=== PATIENT | female | born 1950 | race Caucasian/White ===

== ENCOUNTER 2020-04-19 09:13 | Outpatient (REF) | payer MEDICARE, SELFPAY ==
[2020-04-19 11:16] LABS: Hematocrit 41.1 % (37-47); Hemoglobin 13.8 g/dl (12.0-16.0); Mean Corpuscular HGB Conc 33.6 g/dl (31.0-35.0); Mean Corpuscular Hemoglobin 31.3 pg (27.0-33.0); Mean Corpuscular Volume 93.2 fL (80-98); Mean Platelet Volume 9.3 fL (9.4-12.3); Platelet Count 304 X10*3/uL (160-400); Red Blood Count 4.41 X10*6/uL (4.20-5.50); Red Cell Distribution Width 12.7 % (11.0-16.0); White Blood Count 6.5 X10*3/uL (4.8-10.8)
[2020-04-19 11:35] LABS: Estimated Average Glucose 114 mg/dL; Hemoglobin A1c % 5.6 %
[2020-04-19 11:48] LABS: Alanine Aminotransferase 27 U/L (0-31); Albumin Level 4.3 g/dL (3.5-5.0); Alkaline Phosphatase 53 U/L (39-117); Anion Gap 13 (12-20); Aspartate Amino Transferase 24 U/L (5-31); Bilirubin Total 0.6 mg/dL (0.0-1.0); Blood Urea Nitrogen 11 mg/dL (9-16); Calcium 9.6 mg/dL (8.4-10.2); Carbon Dioxide 34 mmol/L (22-29); Chloride 96 mmol/L (96-108); Cholesterol 221 mg/dL; Estimated Glomerular Filt Rate > 60; Glucose Fasting 101 mg/dL (60-99); HDL Cholesterol 47 mg/dL; LDL Cholesterol Calculated 143 mg/dl; Sodium 139 mmol/L (135-145); Total Protein 7.5 g/dL (6.5-8.0); Triglycerides 157 mg/dL
== END 2020-04-19 09:14 | disposition home or self-care (01) ==
LOC: HO.MANLR 09:13
PROVIDERS: PCP Internal Medicine; Visit Provider Internal Medicine
DX: E11.9 Type 2 diabetes mellitus without complications (principal)
CPT/HCPCS: 36415; 80053; 80061; 83036; 85027

== ENCOUNTER 2020-07-19 08:00 | Outpatient (REF) | payer MEDICARE, SELFPAY ==
[2020-07-19 11:43] LABS: Estimated Average Glucose 120 mg/dL; Hemoglobin A1c % 5.8 %
== END 2020-07-19 08:01 | disposition home or self-care (01) ==
LOC: HO.MANLDS 08:00
PROVIDERS: PCP Internal Medicine; Visit Provider Internal Medicine
DX: E11.9 Type 2 diabetes mellitus without complications (principal)
CPT/HCPCS: 36415; 83036

== ENCOUNTER 2021-01-28 11:28 | Outpatient (REF) | payer MEDICARE, SELFPAY ==
[2021-01-28 14:18] LABS: Estimated Average Glucose 120 mg/dL; Hemoglobin A1c % 5.8 %
== END 2021-01-28 11:29 | disposition home or self-care (01) ==
LOC: HO.MANLDS 11:28
PROVIDERS: PCP Internal Medicine; Visit Provider Internal Medicine
DX: E11.9 Type 2 diabetes mellitus without complications (principal)
CPT/HCPCS: 36415; 83036

== ENCOUNTER 2021-04-25 08:58 | Outpatient (REF) | payer MEDICARE, SELFPAY ==
[2021-04-25 11:52] LABS: Hematocrit 37.6 % (37.0-47.0); Hemoglobin 12.9 g/dl (12.0-16.0); Mean Corpuscular HGB Conc 34.3 g/dl (31.0-35.0); Mean Corpuscular Hemoglobin 31.5 pg (27.0-33.0); Mean Corpuscular Volume 91.7 fL (80.0-98.0); Mean Platelet Volume 9.6 fL (9.4-12.3); Platelet Count 288 X10*3/uL (160-400); Red Cell Distribution Width 12.7 % (11.0-16.0)
[2021-04-25 12:01] LABS: Alanine Aminotransferase 26 U/L (0-31); Albumin Level 4.1 g/dL (3.5-5.0); Alkaline Phosphatase 58 U/L (39-117); Anion Gap 12 (12-20); Aspartate Amino Transferase 23 U/L (5-31); Bilirubin Total 0.6 mg/dL (0.0-1.0); Blood Urea Nitrogen 13 mg/dL (9-16); Calcium 9.7 mg/dL (8.4-10.2); Carbon Dioxide 35 mmol/L (22-29); Chloride 97 mmol/L (96-108); Estimated Glomerular Filt Rate > 60; Glucose Fasting 98 mg/dL (60-99); Potassium 3.8 mmol/L (3.3-5.1); Sodium 140 mmol/L (135-145); Total Protein 7.3 g/dL (6.5-8.0)
[2021-04-25 12:16] LABS: Cholesterol 172 mg/dL; HDL Cholesterol 42 mg/dL; LDL Cholesterol Calculated 110 mg/dl; Triglycerides 101 mg/dL
[2021-04-25 12:18] LABS: Estimated Average Glucose 126 mg/dL
== END 2021-04-25 08:59 | disposition home or self-care (01) ==
LOC: HO.MANLDS 08:58
PROVIDERS: PCP Internal Medicine; Visit Provider Internal Medicine
DX: E11.9 Type 2 diabetes mellitus without complications (principal); I10 Essential (primary) hypertension
CPT/HCPCS: 36415; 80053; 80061; 83036; 85027

== ENCOUNTER 2021-09-02 08:06 | Outpatient (REF) | payer MEDICARE, SELFPAY ==
[2021-09-02 12:37] LABS: Alanine Aminotransferase 21 U/L (0-31); Albumin Level 4.1 g/dL (3.5-5.0); Alkaline Phosphatase 62 U/L (39-117); Anion Gap 14 (12-20); Aspartate Amino Transferase 20 U/L (5-31); Bilirubin Total 0.6 mg/dL (0.0-1.0); Blood Urea Nitrogen 9 mg/dL (9-16); Calcium 9.5 mg/dL (8.4-10.2); Carbon Dioxide 32 mmol/L (22-29); Chloride 98 mmol/L (96-108); Cholesterol 181 mg/dL; Estimated Glomerular Filt Rate > 60; Glucose Random 117 mg/dL (60-115); HDL Cholesterol 50 mg/dL; LDL Cholesterol Calculated 113 mg/dl; Potassium 3.5 mmol/L (3.3-5.1); Sodium 140 mmol/L (135-145); Total Protein 7.2 g/dL (6.5-8.0); Triglycerides 94 mg/dL
[2021-09-02 12:39] LABS: Estimated Average Glucose 123 mg/dL; Hemoglobin A1c % 5.9 %
== END 2021-09-02 08:07 | disposition home or self-care (01) ==
LOC: HO.MANLDS 08:06
PROVIDERS: Visit Provider Internal Medicine
DX: E11.9 Type 2 diabetes mellitus without complications (principal)
CPT/HCPCS: 36415; 80053; 80061; 83036

== ENCOUNTER 2021-09-03 07:59 | Outpatient (REF) | payer MEDICARE, SELFPAY ==
[2021-09-03 12:08] LABS: Creatinine Urine 18.52 mg/dL; Microalbumin Urine < 5.0 mg/L
== END 2021-09-03 08:00 | disposition home or self-care (01) ==
LOC: HO.MANLDS 07:59
PROVIDERS: Visit Provider Internal Medicine
DX: E11.9 Type 2 diabetes mellitus without complications (principal)
CPT/HCPCS: 82043

== ENCOUNTER 2021-10-20 08:17 | Outpatient (REF) | payer MEDICARE, SELFPAY ==
[2021-10-20 11:20] LABS: Alanine Aminotransferase 27 U/L (0-31); Albumin Level 4.1 g/dL (3.5-5.0); Alkaline Phosphatase 62 U/L (39-117); Anion Gap 15 (12-20); Aspartate Amino Transferase 24 U/L (5-31); Bilirubin Total 0.7 mg/dL (0.0-1.0); Blood Urea Nitrogen 7 mg/dL (9-16); Calcium 9.3 mg/dL (8.4-10.2); Carbon Dioxide 32 mmol/L (22-29); Chloride 92 mmol/L (96-108); Estimated Glomerular Filt Rate > 60; Glucose Random 103 mg/dL (60-115); Potassium 3.3 mmol/L (3.3-5.1); Sodium 136 mmol/L (135-145); Total Protein 7.1 g/dL (6.5-8.0)
[2021-10-20 11:23] LABS: Estimated Average Glucose 120 mg/dL; Hemoglobin A1c % 5.8 %
== END 2021-10-20 08:18 | disposition home or self-care (01) ==
LOC: HO.MANLDS 08:17
PROVIDERS: Visit Provider Internal Medicine
DX: E11.9 Type 2 diabetes mellitus without complications (principal)
CPT/HCPCS: 36415; 80053; 83036

== ENCOUNTER 2022-01-26 09:02 | Outpatient (REF) | payer MEDICARE, SELFPAY ==
[2022-01-26 12:25] LABS: Estimated Average Glucose 120 mg/dL; Hemoglobin A1c % 5.8 %
== END 2022-01-26 09:03 | disposition home or self-care (01) ==
LOC: HO.MANLDS 09:02
PROVIDERS: Visit Provider Internal Medicine
DX: Z13.89 Encounter for screening for other disorder (principal)
CPT/HCPCS: 36415; 83036

== ENCOUNTER 2022-06-05 08:51 | Outpatient (REF) | payer MEDICARE, SELFPAY ==
[2022-06-05 12:25] LABS: Hematocrit 37.7 % (37.0-47.0); Hemoglobin 13.1 g/dl (12.0-16.0); Mean Corpuscular HGB Conc 34.7 g/dl (31.0-35.0); Mean Corpuscular Hemoglobin 31.4 pg (27.0-33.0); Mean Corpuscular Volume 90.4 fL (80.0-98.0); Mean Platelet Volume 9.3 fL (9.4-12.3); Platelet Count 296 X10*3/uL (160-400); Red Blood Count 4.17 X10*6/uL (4.20-5.50)
[2022-06-05 12:56] LABS: Alanine Aminotransferase 28 U/L (0-31); Alkaline Phosphatase 67 U/L (39-117); Anion Gap 12 (12-20); Aspartate Amino Transferase 25 U/L (5-31); Bilirubin Total 0.7 mg/dL (0.0-1.0); Blood Urea Nitrogen 10 mg/dL (9-16); Calcium 9.7 mg/dL (8.4-10.2); Carbon Dioxide 34 mmol/L (22-29); Chloride 96 mmol/L (96-108); Cholesterol 179 mg/dL; Estimated Glomerular Filt Rate > 60; Glucose Fasting 109 mg/dL (60-99); HDL Cholesterol 44 mg/dL; LDL Cholesterol Calculated 114 mg/dl; Potassium 3.4 mmol/L (3.3-5.1); Sodium 139 mmol/L (135-145); Total Protein 6.9 g/dL (6.5-8.0); Triglycerides 109 mg/dL
== END 2022-06-05 08:52 | disposition home or self-care (01) ==
LOC: HO.MANLDS 08:51
PROVIDERS: Visit Provider Internal Medicine
DX: I10 Essential (primary) hypertension (principal); E78.00 Pure hypercholesterolemia, unspecified
CPT/HCPCS: 36415; 80053; 80061; 85027

== ENCOUNTER 2022-09-18 09:02 | Outpatient (REF) | payer MEDICARE, SELFPAY ==
[2022-09-18 13:21] LABS: MANUAL DIFF FLAG NO
[2022-09-18 13:40] LABS: Basophils Absolute Auto 0.1 X10*3/uL (0.0-0.2); Basophils Percent Auto 0.9 % (0-2); Eosinophils Absolute Auto 0.2 X10*3/uL (0.0-0.4); Eosinophils Percent Auto 2.7 % (0-4); Hematocrit 37.4 % (37.0-47.0); Imm Gran Abs Auto 0.02 X10*3/uL (0.00-0.03); Imm Gran Pct Auto 0.3 % (0.0-0.4); Lymphocytes Absolute Auto 1.5 X10*3/uL (1.2-4.9); Lymphocytes Percent Auto 25.9 % (20-40); Mean Corpuscular HGB Conc 34.8 g/dl (31.0-35.0); Mean Corpuscular Hemoglobin 32.1 pg (27.0-33.0); Mean Corpuscular Volume 92.3 fL (80.0-98.0); Mean Platelet Volume 9.8 fL (9.4-12.3); Monocytes Absolute Auto 0.5 X10*3/uL (0.1-1.2); Monocytes Percent Auto 8.1 % (2-11); Neutrophils Absolute Auto 3.6 x10*3/uL (2.0-8.3); Neutrophils Percent Auto 62.1 % (45-73); Platelet Count 293 X10*3/uL (160-400); Red Blood Count 4.05 X10*6/uL (4.20-5.50); Red Cell Distribution Width 13.2 % (11.0-16.0); White Blood Count 5.8 X10*3/uL (4.8-10.8)
[2022-09-18 14:12] LABS: Estimated Average Glucose 117 mg/dL; Hemoglobin A1c % 5.7 %
[2022-09-18 15:29] LABS: Alanine Aminotransferase 23 U/L (0-31); Albumin Level 3.9 g/dL (3.5-5.0); Alkaline Phosphatase 64 U/L (39-117); Anion Gap 13 (12-20); Aspartate Amino Transferase 23 U/L (5-31); Blood Urea Nitrogen 9 mg/dL (9-16); Calcium 10.4 mg/dL (8.4-10.2); Carbon Dioxide 32 mmol/L (22-29); Chloride 97 mmol/L (96-108); Cholesterol 171 mg/dL; Estimated Glomerular Filt Rate > 60; Glucose Random 103 mg/dL (60-115); HDL Cholesterol 41 mg/dL; LDL Cholesterol Calculated 106 mg/dl; Potassium 3.6 mmol/L (3.3-5.1); Sodium 138 mmol/L (135-145); Total Protein 7.2 g/dL (6.5-8.0); Triglycerides 122 mg/dL
[2022-09-18 16:34] LABS: Bilirubin Total 0.5 mg/dL (0.0-1.0)
== END 2022-09-18 09:03 | disposition home or self-care (01) ==
LOC: HO.MANLDS 09:02
PROVIDERS: Visit Provider Physician Assistant
DX: E78.00 Pure hypercholesterolemia, unspecified (principal); R73.01 Impaired fasting glucose
CPT/HCPCS: 36415; 80053; 80061; 83036; 85025

== ENCOUNTER 2022-12-23 08:57 | Outpatient (REF) | payer MEDICARE, SELFPAY ==
[2022-12-23 13:49] LABS: MANUAL DIFF FLAG NO
[2022-12-23 13:59] LABS: Basophils Absolute Auto 0.1 X10*3/uL (0.0-0.2); Basophils Percent Auto 0.9 % (0-2); Eosinophils Absolute Auto 0.2 X10*3/uL (0.0-0.4); Eosinophils Percent Auto 2.2 % (0-4); Hematocrit 37.1 % (37.0-47.0); Hemoglobin 12.8 g/dl (12.0-16.0); Imm Gran Abs Auto 0.02 X10*3/uL (0.00-0.03); Imm Gran Pct Auto 0.3 % (0.0-0.4); Lymphocytes Absolute Auto 1.6 X10*3/uL (1.2-4.9); Lymphocytes Percent Auto 23.6 % (20-40); Mean Corpuscular HGB Conc 34.5 g/dl (31.0-35.0); Mean Corpuscular Hemoglobin 31.7 pg (27.0-33.0); Mean Corpuscular Volume 91.8 fL (80.0-98.0); Mean Platelet Volume 9.7 fL (9.4-12.3); Monocytes Absolute Auto 0.5 X10*3/uL (0.1-1.2); Monocytes Percent Auto 7.8 % (2-11); Neutrophils Absolute Auto 4.5 x10*3/uL (2.0-8.3); Neutrophils Percent Auto 65.2 % (45-73); Platelet Count 278 X10*3/uL (160-400); Red Blood Count 4.04 X10*6/uL (4.20-5.50); Red Cell Distribution Width 13.2 % (11.0-16.0); White Blood Count 6.8 X10*3/uL (4.8-10.8)
[2022-12-23 14:07] LABS: Estimated Average Glucose 117 mg/dL; Hemoglobin A1c % 5.7 % (<6.0)
[2022-12-23 14:45] LABS: Alanine Aminotransferase 29 U/L (0-31); Alkaline Phosphatase 61 U/L (39-117); Anion Gap 13 (12-20); Aspartate Amino Transferase 29 U/L (5-31); Bilirubin Total 0.5 mg/dL (0.0-1.0); Blood Urea Nitrogen 10 mg/dL (9-16); Calcium 9.9 mg/dL (8.4-10.2); Carbon Dioxide 29 mmol/L (22-29); Chloride 98 mmol/L (96-108); Cholesterol 177 mg/dL (<200); Estimated Glomerular Filt Rate > 60; Glucose Random 106 mg/dL (60-115); HDL Cholesterol 44 mg/dL (>40); LDL Cholesterol Calculated 112 mg/dL (<100); Potassium 3.2 mmol/L (3.3-5.1); Sodium 137 mmol/L (135-145); Total Protein 7.4 g/dL (6.5-8.0); Triglycerides 107 mg/dL (<150)
== END 2022-12-23 08:58 | disposition home or self-care (01) ==
LOC: HO.MANLDS 08:57
PROVIDERS: Visit Provider Physician Assistant
DX: E78.00 Pure hypercholesterolemia, unspecified (principal); R73.01 Impaired fasting glucose
CPT/HCPCS: 36415; 80053; 80061; 83036; 85025

== ENCOUNTER 2023-09-08 11:42 | Outpatient (REF) | payer MEDICARE, SELFPAY ==
[2023-09-08 16:08] LABS: MANUAL DIFF FLAG NO
[2023-09-08 16:14] LABS: Basophils Absolute Auto 0.1 X10*3/uL (0.0-0.2); Basophils Percent Auto 0.7 % (0-2); Eosinophils Absolute Auto 0.2 X10*3/uL (0.0-0.4); Eosinophils Percent Auto 2.2 % (0-4); Hematocrit 36.7 % (37.0-47.0); Hemoglobin 12.3 g/dl (12.0-16.0); Imm Gran Abs Auto 0.03 X10*3/uL (0.00-0.03); Imm Gran Pct Auto 0.4 % (0.0-0.4); Lymphocytes Absolute Auto 2.1 X10*3/uL (1.2-4.9); Lymphocytes Percent Auto 28.4 % (20-40); Mean Corpuscular HGB Conc 33.5 g/dl (31.0-35.0); Mean Corpuscular Hemoglobin 30.4 pg (27.0-33.0); Mean Corpuscular Volume 90.8 fL (80.0-98.0); Mean Platelet Volume 9.5 fL (9.4-12.3); Monocytes Absolute Auto 0.7 X10*3/uL (0.1-1.2); Monocytes Percent Auto 9.2 % (2-11); Neutrophils Absolute Auto 4.3 x10*3/uL (2.0-8.3); Neutrophils Percent Auto 59.1 % (45-73); Platelet Count 296 X10*3/uL (160-400); Red Blood Count 4.04 X10*6/uL (4.20-5.50); Red Cell Distribution Width 13.7 % (11.0-16.0); White Blood Count 7.2 X10*3/uL (4.8-10.8)
[2023-09-08 16:39] LABS: Estimated Average Glucose 128 mg/dL; Hemoglobin A1c % 6.1 % (<6.0)
[2023-09-08 16:44] LABS: Alanine Aminotransferase 32 U/L (0-31); Alkaline Phosphatase 60 U/L (39-117); Anion Gap 13 (12-20); Aspartate Amino Transferase 31 U/L (5-31); Bilirubin Total 0.5 mg/dL (0.0-1.0); Blood Urea Nitrogen 6 mg/dL (9-16); Calcium 10.1 mg/dL (8.4-10.2); Carbon Dioxide 32 mmol/L (22-29); Chloride 92 mmol/L (96-108); Estimated Glomerular Filt Rate > 60; Glucose Random 84 mg/dL (60-115); Potassium 3.3 mmol/L (3.3-5.1); Sodium 134 mmol/L (135-145); Total Protein 7.3 g/dL (6.5-8.0)
[2023-09-08 16:48] LABS: Vitamin D 25-OH Total 62.4 ng/mL (>30)
== END 2023-09-08 11:43 | disposition home or self-care (01) ==
LOC: HO.MANLDS 11:42
PROVIDERS: Visit Provider Internal Medicine
DX: I10 Essential (primary) hypertension (principal); R73.01 Impaired fasting glucose
CPT/HCPCS: 36415; 80053; 82306; 83036; 85025

== ENCOUNTER 2024-07-14 16:00 | Outpatient (REF) | payer MEDICARE, SELFPAY ==
[2024-07-14 17:44] LABS: MANUAL DIFF FLAG NO
[2024-07-14 17:50] LABS: Basophils Percent Auto 0.5 % (0-2); Eosinophils Absolute Auto 0.2 X10*3/uL (0.0-0.4); Eosinophils Percent Auto 2.1 % (0-4); Hematocrit 32.5 % (37.0-47.0); Hemoglobin 11.5 g/dl (12.0-16.0); Imm Gran Abs Auto 0.01 X10*3/uL (0.00-0.03); Imm Gran Pct Auto 0.1 % (0.0-0.4); Lymphocytes Absolute Auto 1.5 X10*3/uL (1.2-4.9); Lymphocytes Percent Auto 19.4 % (20-40); Mean Corpuscular HGB Conc 35.4 g/dl (31.0-35.0); Mean Corpuscular Hemoglobin 32.5 pg (27.0-33.0); Mean Corpuscular Volume 91.8 fL (80.0-98.0); Mean Platelet Volume 8.7 fL (9.4-12.3); Monocytes Absolute Auto 0.7 X10*3/uL (0.1-1.2); Monocytes Percent Auto 9.8 % (2-11); Neutrophils Absolute Auto 5.1 x10*3/uL (2.0-8.3); Neutrophils Percent Auto 68.1 % (45-73); Platelet Count 267 X10*3/uL (160-400); Red Blood Count 3.54 X10*6/uL (4.20-5.50); Red Cell Distribution Width 13.8 % (11.0-16.0); White Blood Count 7.5 X10*3/uL (4.8-10.8)
[2024-07-14 18:42] LABS: Alanine Aminotransferase 19 U/L (0-31); Albumin Level 3.9 g/dL (3.5-5.0); Alkaline Phosphatase 71 U/L (39-117); Anion Gap 12 (12-20); Aspartate Amino Transferase 26 U/L (5-31); Bilirubin Total 0.3 mg/dL (0.0-1.0); Blood Urea Nitrogen 10 mg/dL (9-16); Calcium 9.6 mg/dL (8.4-10.2); Carbon Dioxide 32 mmol/L (22-29); Chloride 95 mmol/L (96-108); Estimated Glomerular Filt Rate > 60; Glucose Random 108 mg/dL (60-115); Potassium 3.2 mmol/L (3.3-5.1); Sodium 136 mmol/L (135-145); Total Protein 7.3 g/dL (6.5-8.0)
[2024-07-14 19:00] LABS: Vitamin D 25-OH Total 64.3 ng/mL (>30)
[2024-07-14 19:07] LABS: Estimated Average Glucose 114 mg/dL; Hemoglobin A1C 113.3867 umol/L; Hemoglobin A1c % 5.6 % (<6.0); Total Hemoglobin (HGBA1C) 2969.0741 umol/L
== END 2024-07-14 16:01 | disposition home or self-care (01) ==
LOC: HO.MANLDS 16:00
PROVIDERS: Visit Provider Internal Medicine
DX: I10 Essential (primary) hypertension (principal); R73.01 Impaired fasting glucose
CPT/HCPCS: 36415; 80053; 82306; 83036; 85025

== ENCOUNTER 2024-09-20 12:10 | Outpatient (REF) | payer MEDICARE, SELFPAY ==
--- OUTSIDE RECORDS SUMMARY | 2024-09-20 13:12 | XMS_ITS | Data Portability ---
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 MODERATE MUST MEET 2 OUT OF 3 ELEMENTS: PROBLEMS, DATA OR RISK ELEMENT 1: PROBLEMS ADDRESSED 1 OR MORE CHRONIC ILLNESS WITH EXACERBATION OR 2 OR MORE STABLE CHRONIC ILLNESSES OR 1 UNDIAGNOSED NEW PROBLEM OR 1 ACUTE ILLNESS W/SYMPTOMS OR 1 ACUTE COMPLICATED INJURY ELEMENT 2: DATA MUST MEET 1 OF 3 CATEGORIES CATEGORY 1: REVIEW OF PRIOR EXTERNAL NOTES, REVIEW OF RESULTS, ORDERING OF EACH TEST, ASSESSMENT REQUIRING INDEPENDENT HISTORIAN OR CATEGORY 2: INDEPENDENT INTERPRETATION OF TESTS BY ANOTHER PHYSICIAN OR SPECIALIST OR CATEGORY 3: DISCUSSION OF MGT OR TEST INTERPRETATION W/EXTERNAL PHYSICIAN OR SPECIALIST ELEMENT 3: RISK RISK OF COMPLICATIONS AND/OR MORBIDITY OR MORTALITY OF PATIENT MANAGEMENT PROVIDER MUST THOROUGHLY DOCUMENT EACH ELEMENT THAT IS COVERED Not available 09/08/2023 11:14:22 01/11/2024 01/11/2024 [id number] [place] [id number] (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 MODERATE MUST MEET 2 OUT OF 3 ELEMENTS: PROBLEMS, DATA OR RISK ELEMENT 1: PROBLEMS ADDRESSED 1 OR MORE CHRONIC ILLNESS WITH EXACERBATION OR 2 OR MORE STABLE CHRONIC ILLNESSES OR 1 UNDIAGNOSED NEW PROBLEM OR 1 ACUTE ILLNESS W/SYMPTOMS OR 1 ACUTE COMPLICATED INJURY ELEMENT 2: DATA MUST MEET 1 OF 3 CATEGORIES CATEGORY 1: REVIEW OF PRIOR EXTERNAL NOTES, REVIEW OF RESULTS, ORDERING OF EACH TEST, ASSESSMENT REQUIRING INDEPENDENT HISTORIAN OR CATEGORY 2: INDEPENDENT INTERPRETATION OF TESTS BY ANOTHER PHYSICIAN OR SPECIALIST OR CATEGORY 3: DISCUSSION OF MGT OR TEST INTERPRETATION W/EXTERNAL PHYSICIAN OR SPECIALIST ELEMENT 3: RISK RISK OF COMPLICATIONS AND/OR MORBIDITY OR MORTALITY OF PATIENT MANAGEMENT PROVIDER MUST THOROUGHLY DOCUMENT EACH ELEMENT THAT IS COVERED Not available 01/11/2024 12:01:12 02/07/2024 02/07/2024 Patient presente d to office today for their Medicare Annual Wellness Visit. Education was provided on healthy nutrition, including a diet rich in fruits and vegetables, minimizing simple carbohydrates, salt, and saturated fats. Encouraged regular cardiovascular exercise such as walking at least 30 minutes daily, 5 times per week. Emphasized preventive health measures and educated pt on fall prevention and community-based lifestyle interventions to help reduce health risks and promote healthy living. 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) [facility] MODERATE MUST MEET 2 OUT OF 3 ELEMENTS: PROBLEMS, DATA OR RISK ELEMENT 1: PROBLEMS ADDRESSED 1 OR MORE CHRONIC ILLNESS WITH EXACERBATION OR 2 OR MORE STABLE CHRONIC ILLNESSES OR 1 UNDIAGNOSED NEW PROBLEM OR 1 ACUTE ILLNESS W/SYMPTOMS OR 1 ACUTE COMPLICATED INJURY ELEMENT 2: DATA MUST MEET 1 OF 3 CATEGORIES CATEGORY 1: REVIEW OF PRIOR EXTERNAL NOTES, REVIEW OF RESULTS, ORDERING OF EACH TEST, ASSESSMENT REQUIRING INDEPENDENT HISTORIAN OR CATEGORY 2: INDEPENDENT INTERPRETATION OF TESTS BY ANOTHER PHYSICIAN OR SPECIALIST OR CATEGORY 3: DISCUSSION OF MGT OR TEST INTERPRETATION W/EXTERNAL PHYSICIAN OR SPECIALIST ELEMENT 3: RISK RISK OF COMPLICATIONS AND/OR MORBIDITY OR MORTALITY OF PATIENT MANAGEMENT PROVIDER MUST THOROUGHLY DOCUMENT EACH ELEMENT THAT IS COVERED Not available 04/10/2024 12:06:36 07/19/2024 07/19/2024 [id number] [place] [id number] (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) [facility] MODERATE MUST MEET 2 OUT OF 3 ELEMENTS: PROBLEMS, DATA OR RISK ELEMENT 1: PROBLEMS ADDRESSED 1 OR MORE CHRONIC ILLNESS WITH EXACERBATION OR 2 OR MORE STABLE CHRONIC ILLNESSES OR 1 UNDIAGNOSED NEW PROBLEM OR 1 ACUTE ILLNESS W/SYMPTOMS OR 1 ACUTE COMPLICATED INJURY ELEMENT 2: DATA MUST MEET 1 OF 3 CATEGORIES CATEGORY 1: REVIEW OF PRIOR EXTERNAL NOTES, REVIEW OF RESULTS, ORDERING OF EACH TEST, ASSESSMENT REQUIRING INDEPENDENT HISTORIAN OR CATEGORY 2: INDEPENDENT INTERPRETATION OF TESTS BY ANOTHER PHYSICIAN OR SPECIALIST OR CATEGORY 3: DISCUSSION OF MGT OR TEST INTERPRETATION W/EXTERNAL PHYSICIAN OR SPECIALIST ELEMENT 3: RISK RISK OF COMPLICATIONS AND/OR MORBIDITY OR MORTALITY OF PATIENT MANAGEMENT PROVIDER MUST THOROUGHLY DOCUMENT EACH ELEMENT THAT IS COVERED Not available 07/19/2024 09:41:08 Plan of Treatment Reminders Order Date Submit Date Provider Last Modified By Organization Details Last Modified Time Details Appointments FOLLOW UP 2024 09:15A M DR BOB Not available Not available Not available FOLLOW UP 2024 09:00A M DR BOB Not available Not available Not available Lab hemoglobi n A1c, QN, blood 2024 025 [facility], [address] [place] [address], [id number], 07/19/2024 09:47:16 lipid panel, serum 2024 025 [facility], [address] [place] [address], [id number], 07/19/2024 09:47:16 CMP, serum or plasma 2024 025 [facility], [address] [place] [address], [id number], 07/19/2024 09:47:16 CBC 2024 025 [facility], [address] [place] [address], [id number], 07/19/2024 09:47:16 hemoglobi n A1c, QN, blood 2024 025 [facility], [address] [place] [address], [id number], 04/10/2024 12:08:40 CMP, serum or plasma 2024 025 [facility], [address] [place] [address], [id number], 04/10/2024 12:08:40 CBC 2024 025 [facility], [address] [place] [address], [id number], 04/10/2024 12:08:40 vitamin D, 25-hydrox y, total, serum 2024 025 [facility], [address] [place] [address], [place], [id number], 04/10/2024 12:08:40 CBC w/ auto diff 2023 024 [facility], [address] [place] [address], [id number], 02/07/2024 12:35:56 CMP, serum or plasma 2023 [facility], [address] [place] [address], [id number], 02/07/2024 12:35:56 HbA1c (hemoglob in A1c), blood 2023 024 [facility], [address] [place] [address], [id number], 09/09/2023 11:13:09 CMP, serum or plasma 2023 024 [facility], [address] [place] [address], [id number], 09/09/2023 11:13:08 CBC 2023 024 [facility], [address] [place] [address], [id number], 09/09/2023 11:13:09 vitamin D, 25-hydrox y, total, serum 2023 [facility], [address] [place] [address], [id number], 09/09/2023 11:13:08 Referral None recorded. Procedures None recorded. Surgeries None recorded. Imaging None recorded. Medication Orders trazodone 50 mg tablet 2023 024 [id number], [address] [place] [address], [id number], 01/11/2024 12:02:56 Patient TargetsNo targets recorded. Patient Instructions Encounter Date Encounter Id Patient Instructions Last Modified By Organization Details Last Modified Time 09/08/2023 [id number] prediabetes: car e instructions Not available 09/08/2023 11:15:31 01/11/2024 [id number] sleep apnea: car e instructions Not available 01/11/2024 12:02:49 insomnia: care instructions Not available 01/11/2024 12:02:49 02/07/2024 [id number] advance care planning: care instructions Not available 02/07/2024 12:24:56 Discussed and explained advance directives such as standard forms to the . Face to face discussion lasted for a duration of ___ minutes. [email or web address] Not available 02/02/2024 09:53:05 04/10/2024 [id number] prediabetes: car e instructions Not available 04/10/2024 12:07:20 insomnia: care instructions Not available 04/10/2024 12:07:20 Reason for Referral None Reported. Results Created Date Observation Date Name Description Value Unit Range Abnormal Flag Note LastModifiedBy Organization Detail LastModifiedTime Result Notes None recorded. Problems Name Problem SNOMED Code Status Onset Date Resolution Date Notes Provider Name and Address Organization Details Recorded Time Hypertensi ve disorder 07579192 Active 2017 Not Available [facility] 2 14:43:44 Obstructiv e sleep apnea syndrome 02476622 Active 2017 Not Available [facility] 2 14:43:44 Osteoarthr itis 577547368 Active 2017 hands/ finger s, hip Not Available [facility] 2 14:43:44 Fracture of metacarpal bone 224410601 Active 2017 5th toe Not Available [facility] 2 14:43:44 Primary hyperchole sterolemia 410674182 Active 2017 Not Available [facility] 2 14:43:44 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 Jose Bob, DO [address] [facility], [place], [address], [facility] 2 14:29:00 Posterior rhinorrhea 78782761 Active 2021 Jose Bob DO [address] [place] [address], [phone], [facility] 2 14:34:20 Cough 73417262 Active 2021 Jose Bob DO [address] [place] [address], [phone], [facility] 2 14:37:07 Allergic rhinitis 59235909 Active 2021 Jose Bob DO [address] [place] [address], [id number], [facility] 2 13:42:12 Impaired fasting glycemia 499363223 Active 2022 SHIELA AKINS [address] [place] [address], [id number], [facility] 3 09:00:22 Follicular cysts of skin and subcutaneo us tissue 591822367 Active 2023 Jose Bob DO [address] [place] [address], [phone], [facility] 4 10:57:12 Insomnia 332434404 Active 2023 Jose Bob DO [address] [place] [address], [phone], [facility] 4 12:02:03 Onychomyco sis of toenails 238324665 Active 2024 Jose Bob DO [address] [place] [address], [phone], [facility] 5 12:39:30 Memory impairment 506995673 Active 2024 Jose Bob DO [address] [place] [address], [phone], [facility] 5 14:15:10 Problem Notes None recorded. Medical Equipment None Reported. Allergies Allergen ID Allergen Name Allergen Category Reaction Reaction Severity Criticality Documentation Date Start Date Code Code System Note Provider Name and Address Organization Details Recorded Time 2041 penicilli n V Not available Not available Not available Not available 10/04/2017 7984 RxNorm Pam lofton [facility] 8 08:40:29 Medications Name Sig Start Date Stop Date Status Note LastModified by Organization Details LastModified Time celecoxib 200 mg capsule 02/08 completed Not Available Not Available Not Available anastrozole 1 mg tablet TAKE 1 TABLET BY MOUTH DAILY active Not Available Not Available No t Available trazodone 50 mg tablet TAKE 1 TABLET BY MOUTH EVERY DAY IN THE EVENING active Not Available Not Available No t Available atorvastati n 10 mg tablet TAKE 1 TABLET BY MOUTH EVERY DAY active Not Available Not Available No t Available azithromyci n 250 mg tablet 02/08 completed Not Available Not Available Not Available hydrochloro thiazide 50 mg tablet TAKE 1 TABLET BY MOUTH EVERY DAY active Not Available Not Available No t Available Nystop 100,000 unit/gram topical powder 05/30 completed Not Available Not Available Not Available terbinafine HCl 250 mg tablet TAKE 1 TABLET BY MOUTH EVERY DAY active Not Available Not Available No t Available clindamycin 1 % topical gel APPLY TOPICALLY TO THE AFFECTED AREA TWICE DAILY 01/10 completed Not Available Not Available Not Available clotrimazol e-betametha sone 1 %-0.05 % topical cream APPLY TOPICALLY TO THE AFFECTED AREA TWICE DAILY FOR 2 WEEKS 05/30 completed Not Available Not Available Not Available mometasone 50 mcg/actuati on nasal spray SHAKE LIQUID AND USE 2 SPRAYS IN EACH NOSTRIL EVERY DAY 06/08 completed Not Available Not Available Not Available mupirocin 2 % topical ointment APPLY SMALL AMOUNT TOPICALLY TO THE AFFECTED AREA THREE TIMES DAILY 01/10 completed Not Available Not Available Not Available doxycycline hyclate 100 mg tablet TAKE 1 TABLET BY MOUTH TWICE DAILY FOR 10 DAYS 01/10 completed Not Available Not Available Not Available cyanocobala min (vitamin B-12) active Not Available Not Available Not Available calcium active Not Available Not Avail able Not Available zinc active Not Available Not Availa ble Not Available Glucosamine active Not Available Not A vailable Not Available Vitamin D3 active Not Available Not Av ailable Not Available diclofenac 1 % topical gel APPLY 2 GRAM TO THE AFFECTED AREA(S) BY TOPICAL ROUTE 3 TIMES PER DAY active PRN Not Available Not Available No t Available Fluzone Quad (PF) 60 mcg (15 mcg x 4)/0.5 mL IM syringe ADM 0.5ML IM UTD 01/21 completed Not Available Not Available Not Available BinaxNOW COVID-19 Ag Self Test kit TEST DIRECTED TODAY 10/24 completed Not Available Not Available Not Available Vitals Date Recorded Body height Body mass index (BMI) Body weight Heart rate Oxygen saturation Oxygen saturation in Arterial blood by Pulse oximetry Systolic And Diastolic Provider Name and Address Organization Details Last Updated DateTime 5 163.83 cm 33 kg/m2 55667.5 1 g 66 /min 99 % 99 % 126/72 mm[Hg] Romulo Slaughter [facility] 5 11:40:17 Date Recorded Body height Body mass index (BMI) Body weight Heart rate Oxygen saturation Oxygen saturation in Arterial blood by Pulse oximetry Systolic And Diastolic Provider Name and Address Organization Details Last Updated DateTime 5 163.83 cm 33 kg/m2 45620.5 1 g 58 /min 98 % 98 % 130/78 mm[Hg] April Darnell [facility] 5 09:23:47 Date Recorded Body height Body mass index (BMI) Body weight Oxygen saturation Oxygen saturation in Arterial blood by Pulse oximetry Heart rate Systolic And Diastolic Provider Name and Address Organization Details Last Updated DateTime 4 163.83 cm 38 kg/m2 580366. 28 g 96 % 96 % 72 /min 148/80 mm[Hg] April Darnell [facility] 4 10:49:54 Date Recorded Body height Body mass index (BMI) Body weight Heart rate Oxygen saturation Oxygen saturation in Arterial blood by Pulse oximetry Systolic And Diastolic Provider Name and Address Organization Details Last Updated DateTime 4 163.83 cm 38 kg/m2 565250. 28 g 69 /min 98 % 98 % 130/80 mm[Hg] Romulo Slaughter [facility] 4 11:22:11 Date Recorded Body height Body mass index (BMI) Body weight Heart rate Oxygen saturation Oxygen saturation in Arterial blood by Pulse oximetry Systolic And Diastolic Provider Name and Address Organization Details Last Updated DateTime 4 163.83 cm 35.3 kg/m2 39891.8 1 g 76 /min 98 % 98 % 126/62 mm[Hg] Romulojluis Slaughter [facility] 4 12:08:42 Social History Question Answer Notes LastModified by [employer] Details LastModified Time Tobacco Smoking Status Former Smoker Jose Bob DO [address] [place] [address], [phone], [facility] 02/14/2019 10:10:53 What Is Your Level Of Caffeine Consumption? Occasional Information not available 02/08/2018 What Was The Date Of Your Most Recent Tobacco Screening? 07/19/2024 [email or web address] Information not available 07/19/2024 Sex: Unknown Functional Status Question Answer Note LastModified by [employer] Details LastModified Time Do you or have you ever used any other forms of tobacco or nicotine? No [email or web address] Information not available 09/21/2022 What is your level of alcohol consumption? Occasional Information not available 02/08/2018 What is your exercise level? Occasional walking daily Information not available 02/08/2018 Mental Status None recorded. Family History Nothing Reported. Medical History No medical history recorded. Gynecological HistoryNo gynecological history recorded. Obstetrics History GPAL:G 0 P 0 0 0 0 Immunizations Vaccine Type Date Status Note Provider Nam e and Address Organization Details Recorded Time COVID-19, mRNA, LNP-S, PF, 30 mcg/0.3 mL dose 1 completed Jose Bob DO [address] [place] [address], [phone], [facility] 01/23/2021 18:37:10 Influenza, split virus, quadrivalent, preservative 1 completed Jose Bob DO [address] [place] [address], [phone], [facility] 03/08/2021 17:31:04 influenza, unspecified formulation 2 completed ANKUSH Price [facility] 01/27/2022 09:01:44 Influenza, split virus, quadrivalent, preservative 8 completed Not Available [facility] 12/14/2020 07:03:02 Influenza, split virus, quadrivalent, preservative 9 completed Not Available [facility] 12/14/2020 07:03:02 Influenza, split virus, quadrivalent, preservative 0 completed Not Available [facility] 12/14/2020 07:03:02 COVID-19, mRNA, LNP-S, PF, 30 mcg/0.3 mL dose 1 completed Not Available [facility] 12/14/2020 07:03:02 COVID-19, mRNA, LNP-S, PF, 30 mcg/0.3 mL dose 1 completed Not Available [facility] 12/14/2020 07:03:02 zoster, unspecified formulation 6 completed Not Available [facility] 12/14/2020 07:03:02 Past Encounters Encounter ID Performer Location Encounter Start Date Encounter Closed Date Diagnosis/Indication Diagnosis SNOMED-CT Code Diagnosis ICD10 Code Diagnosis Note [id number] Jose Bob DO [facility] [address],[place] [address] 10/04/2017 11:43:40 10/04/2017 12:29:42 Hypertensive disorder 07014350 I10 excellent bp doing great and has lost wieght no change in meds Primary hypercholesterolemia 252425771 E78.00 LDL is only 111 doing well with atorvastat no change 4 Ankle edema 97839509 R60 .0 isolated edema to roight ankle mo major pain but is clearly swollen no pitting edema [id number] Jose Bob DO [facility] [address],[place] [address] 02/08/2018 10:05:09 02/08/2018 12:21:24 Adult health examination 690924958 Z00.00 doing well overalll recc to eat better and more so to start exercising daily without fail Active or passive immunization 375074144 Z23 recc new 2nd pneumovax Obstructiv e sleep apnea syndrome 41267900 G47.33 will arrange for a new sleep eval [id number] Jose Bob DO [facility] [address],[place] [address] 08/08/2018 11:48:35 08/08/2018 13:36:17 Hypertensive disorder 50268337 I10 stable Osteoarthritis 343393838 M19.90 stable Obstructiv e sleep apnea syndrome 35084471 G47.33 Lipoma of upper arm 1889 25435 D17.20 reassuranc e provided [id number] Jose Bob DO [facility] [address], [address] [facility] [address] 09/27/2018 14:39:42 09/27/2018 15:05:38 Hypertensive disorder 05821721 I10 excellent bp doing great and has lost wieght no change in meds Osteoarthritis 128730485 M19.90 hands etc will cont cinnamon and diclofenac gel Obstructiv e sleep apnea syndrome 23021340 G47.33 had plans to arrange for a new sleep eval but with her weight loss she no longer has a lot of the symptoms now feels good in the morning after sleep after 45 lb wgt loss [id number] Jose Bob DO [facility] [address], [facility] [address] 02/14/2019 10:00:17 02/14/2019 10:40:30 Adult health examination 082890126 Z00.00 doing well overalll recc to eat better and more so to start exercising daily without fail Active or passive immunization 378926272 Z23 recc new 2nd pneumovax Hypertensive disorder 38 375001 I10 excellent bp doing great and has lost wieght no change in meds Obstructiv e sleep apnea syndrome 35378304 G47.33 had plans to arrange for a new sleep eval but with her weight loss she no longer has a lot of the symptoms now feels good in the morning after sleep after 45 lb wgt loss Primary hypercholesterolemia 256847677 E78.00 LDL is only 131 doing well with atorvastat no change 4 hdl is 46 [id number] Jose Bob DO [facility] [address] [facility] [address],[place] [address] 07/11/2019 08:24:05 07/11/2019 13:53:37 Hypertensive disorder 82824641 I10 excellent bp doing great and has lost weight no change in meds Obstructiv e sleep apnea syndrome 20219545 G47.33 had plans to arrange for a new sleep eval but with her weight loss she no longer has a lot of the symptoms Primary hypercholesterolemia 097973635 E78.00 LDL is only 131 doing well with atorvastat no change 4 hdl is 46 will neeed to wait until pandemic under better control [id number] Jose Bob [facility] [address] [facility] [address],[place] [address] [facility] [address] 01/22/2020 10:42:46 01/22/2020 11:40:36 Hypertensive disorder 86863141 I10 excellent bp doing great and has lost weight no change in meds Primary hypercholesterolemia 584414599 E78.00 LDL is only 131 doing well with atorvastat no change 4 hdl is 46 will neeed to wait until pandemic under better control Osteoarthr itis of joint of hand 59631552 M19.049 [id number] Jose Bob DO [facility] [address],[place] [address] [place] [facility] [address] 04/30/2020 10:30:20 04/30/2020 11:46:35 Active or passive immunization 677162346 Z23 recc new 2nd pneumovax and covid Adult heal th examination 783953758 Z00.00 doing well overalll recc to eat better and more so to start exercising daily without fail [id number] Jose Bob DO [facility] [address] [facility] [address], [place] [facility] [address] 07/22/2020 13:31:57 07/22/2020 15:24:07 Hypertensive disorder 54998197 I10 excellent bp doing great and has lost weight no change in meds Primary hypercholesterolemia 476865343 E78.00 prior : LDL is only 131 doing well with atorvastat no change 4 hdl is 46 Obstructiv e sleep apnea syndrome 78964557 G47.33 still has and is not using a cpap (refused) Screening for malignant neoplasm of colon 290625584 Z12.11 [id number] Jose Bob [facility] [address] [facility] [address], [place] [address] 02/03/2021 10:40:13 02/03/2021 15:24:10 Hypertensive disorder 79577760 I10 excellent bp doing great and has lost weight no change in medscont to do the same Osteoarthritis 446823919 M19.90 hands etc will cont cinnamon and diclofenac gel and has helped somewhat Seasonal a llergic rhinitis 983650559 J30.2 will cont to have her take a mucolytic doing ok overall [id number] Jose Bob [facility] [address] [facility] [address], [place] [address] 05/30/2021 10:05:27 05/30/2021 15:09:55 Active or passive immunization 744035944 Z23 recc new pneumovax Adult heal th examination 005242058 Z00.00 doing well overalll recc to eat better and more so to start exercising daily without fail Synovial c yst of right knee 5209816700 85057 M71.21 treat comserv Allergic rhinitis 813732 04 J30.9 zyrtec trial and then flonase if unhelpful [id number] Jose Bob [facility] [address] [facility] [address], [place] [address] 10/24/2021 13:48:11 10/24/2021 14:56:44 Hypertensive disorder 37519775 I10 excellent bp doing great and has lost weight no change in medscont to do the same Active or passive immunization 016660999 Z23 recc new pneumovax and Tdap Posterior rhinorrhea 758 37666 R09.82 encouraged to use something and stop this symptoms Cough 54610314 R05.9 we will have her get a cxr given her hx of smoking Ductal car cinoma in situ of breast 618693580 D05.11 [id number] Jose Bob [facility] [address] [facility] [address], [place] [address] 01/27/2022 13:22:31 01/27/2022 14:13:12 Hypertensive disorder 39276291 I10 excellent bp doing great and has lost weight no change in medscont to do the same Osteoarthritis 391078774 M19.90 hands etc will cont cinnamon and diclofenac gel and has helped somewhat Primary hypercholesterolemia 006271336 E78.00 prior : LDL is only 131 doing well with atorvastat no change 4 hdl is 46 will get next visit Allergic rhinitis [id number] J30.9 zyrtec trial and then flonase if unhelpful Ductal car cinoma in situ of breast [id number] D05.11 following onc and all has been doing well [id number] Jose Bob DO [facility] [address] [facility] [address] [address] 06/08/2022 13:35:18 06/08/2022 15:08:07 Active or passive immunization [id number] Z23 recc new pneumovax and Tdap Adult heal th examination 143287708 Z00.00 doing well overall recc to eat better and more so to start exercising daily without fail [id number] Jose Bob DO [facility] [address] [facility] [address],[place] [address] 09/21/2022 13:46:21 09/21/2022 15:30:59 Hypertensive disorder 31736172 I10 excellent bp doing great and has lost weight no change in medscont to do the same Osteoarthritis 100056601 M19.90 hands etc will cont cinnamon and diclofenac gel and has helped somewhat for her hands Primary hypercholesterolemia 031440565 E78.00 will be getting new lab LDL is only 131 doing well with atorvastat no change 4 hdl is 46 will get next visit Impaired f asting glycemia 625111496 R73.01 a1c is 5.7 doing great [id number] Jose Bob DO [facility] [address] [facility] [address],[place] [address] 12/28/2022 10:36:34 12/28/2022 12:28:23 Hypertensive disorder 52998943 I10 excellent bp doing great and has lost weight no change in medscont to do the same Impaired f asting glycemia 873186596 R73.01 a1c is 5.7 doing great still 5.7 Osteoarthritis 529862742 M19.90 hands etc will cont use diclofenac gel and has helped somewhat for her hands but had been not using more than 1-2x day told to increase to 4 x day Primary hypercholesterolemia 836869865 E78.00 will be getting new lab LDL is only 112 doing well with atorvastat no change hdl is 44 [id number] Jose Bob [facility] Internal Medicine [address] [facility],[place] [address] 06/11/2023 10:29:28 06/11/2023 14:05:51 Primary hypercholesterolemia 865024700 E78.00 will be getting new lab LDL is only 112 doing well with atorvastat no change hdl is 44 Hypertensive disorder 38 630383 I10 excellent bp doing great and has lost weight no change in medscont to do the same Follicular cysts of skin and subcutaneous tissue 365136963 L72.9 needs treatment [id number] Jose Bob [facility] [address] [place] [address], [employer] [facility]UP[facility] [address] 09/08/2023 10:43:17 09/08/2023 11:24:51 Depression screening 114441346 Z13.31 negative Hypertensive disorder 38 354414 I10 excellent bp doing great and has lost weight no change in medscont to do the same Impaired f asting glycemia 165106384 R73.01 a1c is 5.7 doing great still 5.7 [id number] Jose Bob [facility] [address],[place] [address] 01/11/2024 11:15:32 01/11/2024 12:09:54 Hypertensive disorder 35842154 I10 excellent bp doing great and has lost weight no change in medscont to do the same Obstructiv e sleep apnea syndrome 30123499 G47.33 still has and is not using a cpap (refused) Insomnia 150577507 F51.0 1 [id number] Jose Bob [facility] [address],[place] [address] 02/07/2024 11:55:13 02/07/2024 12:30:30 Adult health examination 428062479 Z00.00 doing well overall recc to eat better and more so to start exercising daily without fail Screening mammography 24 217661 Z12.31 had done in apr Primary hypercholesterolemia 782875908 E78.00 will be getting new lab LDL is only 112 doing well with atorvastat no change hdl is 44 done in september Hypertensive disorder 38 741695 I10 excellent bp doing great and has lost weight no change in medscont to do the same [id number] Jose Bob, [facility] [address] [facility] [address],[place] [address] 04/10/2024 11:31:19 04/10/2024 14:24:06 Hypertensive disorder 12205645 I10 excellent bp doing great and has lost weight no change in medscont to do the same Insomnia 619125776 F51.0 1 will have her cont traz Impaired f asting glycemia 987878273 R73.01 a1c is 5.7 doing great still 5.7 Primary hypercholesterolemia 664685567 E78.00 will be getting new lab LDL is only 112 doing well with atorvastat no change hdl is 44 done in september Memory impairment 008369 006 R41.3 trazodone actually helping with mood and sleep pt not always agreeing to take medswill cont and see in a couple monthslab ordered [id number] Jose Bob, [facility] [address] [facility] [address],[place] [address] 07/19/2024 09:12:44 07/19/2024 09:53:32 Primary hypercholesterolemia 809998993 E78.00 will be getting new lab LDL is only 112 doing well with atorvastat no change hdl is 44 done in september Hypertensive disorder 38 434479 I10 excellent bp doing great and has lost weight no change in medscont to do the same Impaired f asting glycemia 983053899 R73.01 a1c is 5.7 doing great still 5.7 Depression screening 171 221725 Z13.31 negative Health Concerns Section Related Observation LastModified by Organization Detai ls LastModified Time None Recorded Concern Status LastModified by Organization Details LastModified Time None Recorded Advance Directives Directive None Recorded Payers Insurance Date Sequence Insurance Name Policy Number Policy Lugo Covered Member ID Lugo Member ID Guarantor Name 09/19/2024 1 MEDICARE B-[place]: [facility] [employer] Uzma Almanza [id number] Uzma Cami 09/19/2024 2 [place] [id number] Uzma Fleming Innahéctorrosalio [id number] Uzma Almanza 02/11/2019 2 [place] [id number] Uzma Keithparish [id number] Uzma Cami Notes Date Note Type Note Provider Name and Address Organization Details Recorded Time 09/08/19 24 text/htm l Care Management - HypertensionReported bypatient.Self Care:not under emotional stress Severity:symptoms are improving; does not interfere with daily activities Associated Symptoms:no dizziness; no lightheadedness; no chest pain; no shortness of breath; no palpitations; no edema; no calf muscle cramps; no blurred vision; no confusion; no headaches; no fatigue here for rechkand doing ok overall feels finebp good Jose Bob DO [address] [place], [address], [facility] 09/08/2023 11:20:39 01/11/20 24 text/htm l here for rechk and is not sleeping wellrelates falls asleep in the eveninghusband says she startles awake and seems like she is choking pt has a dx of sleep apnea but threw her machine away Jose Bob DO [address] [place], [address], [facility] 01/11/2024 12:03:06 02/07/20 24 text/htm l Medicare Annual Wellness VisitReported bypatient.Diet and Nutrition:healthy diet Fracture Risk:no history of fractures; no recent explained fracture; no sudden unexplained fractures; no previous musculoskeletal injuries Physical Activity:exercises on a regular basis; recent increase in physical activity; good physical condition Depression Risk:never feels sad, empty, or tearful; no loss of interest in activities; no significant changes in weight; no agitation; no loss of energy; no feelings of worthlessness or guilt; no thoughts of suicide; no history of depression; no history of mood disorders;sleep disturbances or insomnia Orientation:disorientation to time;disorientation to date;disorientation to place Concentration and Memory:decreased concentrating ability;memory lapses or loss;forgetting words Speech/Motor difficulties:no speech difficulties; no difficulty expressing formulated concepts; no difficulty with fine manipulative tasks; no difficulty writing/copying; no slowed reaction time; does not knock things over when trying to pick them up Hearing:no loss of hearing Vision:no vision problems Activities of Daily Living:able to bathe with limited or no assistance; able to contol urination and bowels; able to dress with limited or no assistance; able to feed self with limited or no assistance; able to get out of chair or bed with limited or no assistance; able to groom with limited or no assistance; able to toilet with limited or no assistance Instrumental Activities of Daily Living:able to do house work with limited or no assistance; able to grocery shop with limited or no assistance; able to manage medications with limited or no assistance; able to manage money with limited or no assistance; able to prepare meals with limited or no assistance; able to use the phone with limited or no assistance Falls Risk Assessment:no frequent falls while walking; no fall in the past year; no fall since last visit; no dizziness/vertigo here for bandark doing about the same she is finally taking trazodone and is now getting some sleep also she is eating better per her Jose BernadettePrince Bob, DO [address] [facility], [place], [address], [facility] 02/07/2024 12:28:48 04/10/19 25 text/htm l Care Management - HypertensionReported bypatient.Self Care:not under emotional stress Severity:symptoms are improving; does not interfere with daily activities Associated Symptoms:no dizziness; no lightheadedness; no chest pain; no shortness of breath; no palpitations; no edema; no calf muscle cramps; no blurred vision; no confusion; no headaches; no fatigue here for rechkand is doing better on the trazodoneis sleeping better and the mood seems to be better per husbandshe is quite dishevelled compared to her prior appearances a few years Jose Bob, DO [address] [place], [address], [facility] 04/10/2024 14:16:56 07/20/19 25 text/htm l Care Management - DiabetesReported bypatient.Self Care:seeing eye doctor yearly for dilated eye exam; checking feet regularly; normal range of home blood sugars (in the low 100s); no side effects from medications Associated Symptoms:symptoms are usually well controlled; no fatigue; no dizziness; no excessive sweating; no headaches; no confusion; no increased thirst; no increased appetite; no increased urination; no blurred vision; no numbness of feet; no calluses on feetCare Management - HyperlipidemiaReported bypatient.Control:usually well controlled; improving; at goal Complications:no coronary artery disease; no heart attack; no cardiovascular disease; no pancreatitis; no strokeCare Management - HypertensionReported bypatient.Self Care:not under emotional stress Severity:symptoms are improving; does not interfere with daily activities Associated Symptoms:no dizziness; no lightheadedness; no chest pain; no shortness of breath; no palpitations; no edema; no calf muscle cramps; no blurred vision; no confusion; no headaches; no fatigue states that she is doing betterpt is more engaged and conversant hygiene is improvedtoenails bettersleeping is betteractually started reading againmemory is actually stable Jose Bob DO [address] [facility], [place], [address], [facility] 07/19/2024 09:43:22 OBGyn Episode No OBEpisode recorded.
[2024-09-20 18:05] LABS: MANUAL DIFF FLAG NO
[2024-09-20 18:20] LABS: Hematocrit 32.7 % (37.0-47.0); Hemoglobin 11.3 g/dl (12.0-16.0); Imm Gran Abs Auto 0.02 X10*3/uL (0.00-0.03); Imm Gran Pct Auto 0.3 % (0.0-0.4); Lymphocytes Absolute Auto 1.5 X10*3/uL (1.2-4.9); Mean Corpuscular HGB Conc 34.6 g/dl (31.0-35.0); Mean Corpuscular Hemoglobin 31.7 pg (27.0-33.0); Mean Corpuscular Volume 91.6 fL (80.0-98.0); NRBC Abs Auto 0.000 X10*3/uL (0.0-0.012); NRBC Pct Auto 0.0 /100WBC (0.0-0.2); Platelet Count 274 X10*3/uL (160-400); Red Blood Count 3.57 X10*6/uL (4.20-5.50); White Blood Count 6.8 X10*3/uL (4.8-10.8)
[2024-09-20 18:36] LABS: Alanine Aminotransferase 15 U/L (0-31); Albumin Level 4.0 g/dL (3.5-5.0); Alkaline Phosphatase 64 U/L (39-117); Anion Gap 10 (12-20); Aspartate Amino Transferase 23 U/L (5-31); Blood Urea Nitrogen 7 mg/dL (9-16); Calcium 9.1 mg/dL (8.4-10.2); Carbon Dioxide 31 mmol/L (22-29); Chloride 97 mmol/L (96-108); Cholesterol 196 mg/dL (<200); Estimated Glomerular Filt Rate > 60; HDL Cholesterol 49 mg/dL (>40); Potassium 3.3 mmol/L (3.3-5.1); Sodium 135 mmol/L (135-145); Total Protein 6.9 g/dL (6.5-8.0); Triglycerides 132 mg/dL (<150)
[2024-09-21 05:41] LABS: Hemoglobin A1C 114.3220 umol/L; Total Hemoglobin (HGBA1C) 2947.4765 umol/L
== END 2024-09-20 12:11 | disposition home or self-care (01) ==
LOC: HO.MANLDS 12:10
PROVIDERS: Visit Provider Internal Medicine
DX: I10 Essential (primary) hypertension (principal); E78.00 Pure hypercholesterolemia, unspecified; R73.01 Impaired fasting glucose
CPT/HCPCS: 36415; 80053; 80061; 83036; 85025

== ENCOUNTER 2024-11-28 11:51 | Outpatient (REF) | payer MEDICARE, SELFPAY ==
[2024-11-28 13:14] LABS: MANUAL DIFF FLAG NO
[2024-11-28 13:20] LABS: Hematocrit 34.8 % (37.0-47.0); Hemoglobin 11.8 g/dl (12.0-16.0); Imm Gran Abs Auto 0.02 X10*3/uL (0.00-0.03); Imm Gran Pct Auto 0.3 % (0.0-0.4); Lymphocytes Absolute Auto 1.5 X10*3/uL (1.2-4.9); Mean Corpuscular HGB Conc 33.9 g/dl (31.0-35.0); Mean Corpuscular Hemoglobin 30.8 pg (27.0-33.0); Mean Corpuscular Volume 90.9 fL (80.0-98.0); NRBC Abs Auto 0.000 X10*3/uL (0.0-0.012); NRBC Pct Auto 0.0 /100WBC (0.0-0.2); Platelet Count 292 X10*3/uL (160-400); Red Blood Count 3.83 X10*6/uL (4.20-5.50); White Blood Count 6.7 X10*3/uL (4.8-10.8)
[2024-11-28 13:35] LABS: Hemoglobin A1C 132.0671 umol/L; Total Hemoglobin (HGBA1C) 3142.4840 umol/L
--- OUTSIDE RECORDS SUMMARY | 2024-11-28 14:44 | XMS_ITS | Encounter Summary ---
Author Organization [facility] Address [address] [place] [address] Phone Care Team Providers Care Waitstaff Captain Name Role Phone RandyJose king Bernadette GREEN Primary Care Provider [phone] Encounter Details Date Type Department Care Team (Late st Contact Info) Description 12/13/2020 Procedure Pass [facility] Endoscopy Admitting Dept Virtual Department [address] [place] [address] Social History Tobacco Use Types Packs/Day Years Used Date Smoking Tobacco: Former Cigarettes Q uit: 1988 Smokeless Tobacco: Never Alcohol Use Standard Drinks/Week Comments Yes 0 (1 standard drink = 0.6 oz pur e alcohol) glass of wine @ [employer] Comments No Sex and Gender Information Value Date Recorded Sex Assigned at Not on file Legal Sex Female 10:02 PM EDT Gender Identity Not on file Sexual Orientation Not on file documented as of this encounter Plan of Treatment Not on file documented as of this encounter Visit Diagnoses Not on filedocumented in this encounter Care Teams Waitstaff Captain Relationship Specialty Start Date End Date Jose Major DO PCP - General Internal Medicine 12/02/20 documented as of this encounter Additional Source Comments The information contained in this document represents components of the legal health record. It is not the complete legal health record.[facility]
--- OUTSIDE RECORDS SUMMARY | 2024-11-28 14:44 | XMS_ITS | Clinical Summary ---
Author Organization [facility] Address [address] [facility] [address] [place] [address] Phone Care Team Providers Care Section Laborer Name Role Phone Samantha Major DO Primary Care Provider [phone] Allergies Active Allergy Reactions Criticality Noted Date Comments Penicillins Throat Tightness Medium 12/11/2020 Medications phenylephrine-a cetaminophen-GG (TYLENOL SINUS SEVERE) 5-325-200 mg Tab Take 1 capsule by mouth nightly at bedtime. Active atorvastatin (LIPITOR) 10 MG tablet Take 10 mg by mouth daily. Active hydroCHLOROthia zide (HYDRODIURIL) 50 MG tablet Take 50 mg by mouth daily. Active CALCIUM ORAL Take 1 tablet by mouth daily. Active ascorbic acid (VITAMIN C ORAL) Take 1 tablet by mouth daily. Active glucosamine sulfate (GLUCOSAMINE ORAL) Take 1 tablet by mouth daily. Active cholecalciferol , vitamin D3, (VITAMIN D3 ORAL) Take 1 capsule by mouth daily. Active cyanocobalamin, vitamin B-12, (VITAMIN B-12 ORAL) Take 1 capsule by mouth daily. Active ZINC ORAL Take 1 tablet by mouth daily. Active POTASSIUM ORAL Take 1 tablet by mouth daily. Active beta-carotene,A ,-vits C,E/mins (OCUVITE ORAL) Take 1 tablet by mouth daily. Active clotrimazole-be tamethasone (LOTRISONE) cream Apply topically 2 (two) times a day as needed. Active Social History Tobacco Use Types Packs/Day Years Used Date Smoking Tobacco: Former Cigarettes Q uit: 1988 Smokeless Tobacco: Never Alcohol Use Standard Drinks/Week Comments Yes 0 (1 standard drink = 0.6 oz pur e alcohol) [facility] @ [facility] Education Answer Date Recorded Are you interested in more education? Not on gildardo e 07/03/2022 Are you concerned about learning? Not on file 07/03/2022 No 07/03/2022 No 07/03/2022 Digital Access Answer Date Recorded No 08/01/2022 No 08/01/2022 No 08/01/2022 Reliable internet access at home? Not on file 08/01/2022 Device with a working camera? Not on file Comments No Sex and Gender Information Value Date Recorded Sex Assigned at Not on file Legal Sex Female 10:02 PM EDT Gender Identity Not on file Sexual Orientation Not on file Last Filed Vital Signs Vital Sign Reading Time Taken Comments Blood Pressure 140/52 12/13/2020 11:36 AM EDT Pulse 62 12/13/2020 10:15 AM EDT Temperature 36.9 C (98.4 F) 12/13/2020 11:20 AM EDT Respiratory Rate 14 12/13/2020 11:36 AM EDT Oxygen Saturation 93% 12/13/2020 11:36 AM EDT Inhaled Oxygen Concentration - - Weight 98 kg (216 lb) 12/11/2020 10:19 AM EDT Height 166.4 cm (5' 5.5 ) 12/11/2020 10:19 AM ED T Body Mass Index 35.4 12/11/2020 10:19 AM EDT Plan of Treatment Health Maintenance Due Date Last Done Comments Adult Td,Tdap Booster 1950 LIPID PANEL 1950 POTASSIUM LEVEL 1950 DEPRESSION SCREENING 1961 SMOKING Hx and SMOKELESS TOBACCO SCREENING 1962 HEPATITIS C SCREENING 09/24/1967 COLOGUARD 1994 FIT TEST 1994 FOBT 1994 SIGMOIDOSCOPY 1994 VIRTUAL COLONOSCOPY 1994 PNEUMOCOCCAL VACCINES (50+ years) (2 of 2 - PCV) 12/26/2009 12/26/2008 OSTEOPOROSIS SCREENING INITIAL (ONE-TIME) 2014 ZOSTER VACCINES (2 of 3) 05/04/2015 03/09/2015 RSV VACCINE (1 - 1-dose 75+ series) 2024 INFLUENZA VACCINE (#1) 2024 0, 11/26/2018, 02/04/2018, Additional history exists COVID-19 VACCINE (3 - season) 2024 06/20/2020, 05/30/2020 COLONOSCOPY 12/13/2030 12/13/2020 COLORECTAL CANCER SCREENING 12/13/2030 HEPATITIS A VACCINES Aged Out No long er eligible based on patient's age to complete this topic HIB VACCINES Aged Out No longer eligi ble based on patient's age to complete this topic MENINGOCOCCAL VACCINES (ACWY) Aged Out No longer eligible based on patient's age to complete this topic MENINGOCOCCAL VACCINES (B) Aged Out N o longer eligible based on patient's age to complete this topic Medical Devices Not on file Procedures Procedure Name Priority Date/Time Associated Diagnosis Comments ENDOSCOPY, COLON 12/13/2020 10:4 6 AM EDT from Last 3 Months or Most Recently Relevant to Health Maintenance Results * ENDOSCOPY, COLON (12/13/2020 10:46 AM EDT) Narrative Transcriptions Sagar Vidal MD - 12/13/2020 10:46 AM EDT Patient Name: Uzma Almanza Attending MD:: SAGAR VIDAL MD Procedure Date: 12/13/2020 10:46 AM Date of : 1950 Age: 70 Admit Type: Outpatient Gender: Female Room: [place] [address] Referring MD: SAMANTHA A. BIGDA, DO Exam Type: Colonoscopy Indications: High risk colon cancer surveillance: Personalhistory of colonic polyps, Last colonoscopy: 2014 Medications: Monitored Anesthesia Care Procedure: Informed consent was obtained from the patient after discussion of the indications, limitations, alternatives, benefits, and risks of the procedure. Risks specifically discussed include but are not limited to medication reactions, missed lesions, bleeding, perforation, or the need for emergentsurgery. Throughout the procedure, the patient's bloodpressure, pulse, end-tidal CO2, and oxygen saturations were monitored continuously. The Olympus adult variable colonoscope CF-[id number] #5was introduced through the anus and advanced to thececum, identified by the appendiceal orifice. Thecolonoscopy was performed without difficulty. The patienttolerated the procedure well. The quality of the bowel preparation was good. Complications: No immediate complications. Estimated blood loss:None. Findings: The perianal and digital rectal examinations were normal. A 7 mm polyp was found in the ascending colon. The polyp was sessile. The polyp was removed with a cold snare. Resection and retrieval were complete. Multiple small-mouthed diverticula were found in the sigmoid colon, descending colon and ascendingcolon. The rectum, recto-sigmoid colon, sigmoid colon, descending colon, splenic flexure, transverse colon, hepatic flexure, cecum, appendiceal orifice,ileocecal valve, rectum (on retroflexion) and ascending colon(on retroflexion) appeared normal. Impression: - One 7 mm polyp in the ascending colon, removedwith a cold snare. Resected and retrieved. - Diverticulosis in the sigmoid colon, in the descending colon and in the ascending colon. - The rectum, recto-sigmoid colon, sigmoid colon, descending colon, splenic flexure, transverse colon, hepatic flexure, cecum, appendiceal orifice,ileocecal valve and ascending colon are normal. Recommendation: - Discharge patient to home. - High fiber diet. - Continue present medications. - Await pathology results. - Repeat colonoscopy in 5 years for surveillance. - You have diverticulosis so please eat a high fiber diet. - I will send you pathology results by letter. Ifyou do not get results in 3 weeks telephone my office. SAGAR VIDAL MD 12/13/2020 11:22:35 AM This report has been signed electronically. Number of Addenda: 0 Note Initiated On: 12/13/2020 10:46 AM Procedure Code(s): --- Professional --- 19603, Colonoscopy, flexible; with removal of tumor(s), polyp(s), or other lesion(s) by snare technique --- Technical --- 95912, Colonoscopy, flexible; with removal of tumor(s), polyp(s), or other lesion(s) by snare technique Diagnosis Code(s): --- Professional --- Z86.010, Personal history of colonic polyps D12.2, Benign neoplasm of ascending colon K57.30, Diverticulosis of large intestine without perforation or abscess without bleeding --- Technical --- Z86.010, Personal history of colonic polyps D12.2, Benign neoplasm of ascending colon K57.30, Diverticulosis of large intestine without perforation or abscess without bleeding CPT copyright 2018 [employer]. All rights reserved. The codes documented in this report are preliminary and upon deicer repairer electric reviewmay be revised to meet current compliance requirements. Procedure Date: 12/13/2020 10:46:[address] [place] [address] us Samantha A Bigda DO GI PROCEDURE ORDERABLES Final Re sult from Last 3 Months or Most Recently Relevant to Health Maintenance Insurance [facility] MEDEX SUPPLEMENT MEDICARE PART A & B [employer] MEDEX SUPPLEMENT MEDICARE PART A & B [employer] CROSS MEDEX SUPPLEMENT MEDICARE PART A & B [employer] CROSS MEDEX SUPPLEMENT MEDICARE PART A & B [employer] CROSS MEDEX SUPPLEMENT MEDICARE PART A & B [employer] SUPPLEMENT MEDICARE PART A & B [employer] SUPPLEMENT MEDICARE PART A & B [employer] SUPPLEMENT MEDICARE PART A & B MEDICARE PART A & B Care Teams Section Laborer Relationship Specialty Start Date End Date Samantha Major DO [email or web address] PCP - General Internal Medicine 12/02/20 Additional Source Comments The information contained in this document represents components of the legal health record. It is not the complete legal health record.[facility]
--- OUTSIDE RECORDS SUMMARY | 2024-11-28 14:44 | XMS_ITS | Encounter Summary ---
Author Organization [facility] Address [address] [address] Phone Care Team Providers Care Slot Manager Name Role Phone Jose Major DO Primary Care Provider [phone] Jose Major DO Primary Care Provider [phone] Reason for Referral * Physical Therapy (Routine) - Closed Specialty Diagnoses / Procedures Referred By Hernán mark Referred To Contact Physical Therapy Diagnoses Encounter for rehabilitation System, Provider Not In, PhD [id number] [place] [address] [address] [place] [address] Phone: tel: Referral ID Status Reason Start Date Expiration Date Visits Re quested Visits Authorized [id number] Closed 06/11/2017 03/07/2018 99 [phone] Encounter Details Date Type Department Care Team (Late st Contact Info) Description 06/01/2017 Transcribe Orders [facility] [address] [place] [address] Jose Major DO [address] [facility] [place] [address] [email or web address] Encounter for rehabilitation (Primary Dx) Social History Tobacco Use Types Packs/Day Years Used Date Smoking Tobacco: Never Assessed Comments Unknown Sex and Gender Information Value Date Recorded Sex Assigned at Not on file Legal Sex Female 10:02 PM EDT Gender Identity Not on file Sexual Orientation Not on file documented as of this encounter Plan of Treatment Not on file documented as of this encounter Procedures Procedure Name Priority Date/Time Associated Diagnosis Comments AMB REFERRAL TO [facility] PHYSICAL THERAPY Routine 06/11/2017 10:24 AM EDT Encounter for rehabilitation documented in this encounter Results * Ambulatory referral to [facility] Physical Therapy (06/11/2017 10:24 AM EDT) us Provider Not In System PhD AMB [facility] REFERRALS Fin al Result documented in this encounter Visit Diagnoses Diagnosis Encounter for rehabilitation- Primary documented in this encounter Care Teams Slot Manager Relationship Specialty Start Date End Date Jose Major DO [email or web address] PCP - General Internal Medicine 05/28/17 12/01/20 Jose Major DO [email or web address] PCP - General Internal Medicine 12/02/20 documented as of this encounter Additional Source Comments The information contained in this document represents components of the legal health record. It is not the complete legal health record.[facility]
[2024-11-28 18:44] LABS: Alanine Aminotransferase 15 U/L (0-31); Albumin Level 4.1 g/dL (3.5-5.0); Alkaline Phosphatase 73 U/L (39-117); Anion Gap 11 (12-20); Aspartate Amino Transferase 25 U/L (5-31); Blood Urea Nitrogen 11 mg/dL (9-16); Calcium 9.6 mg/dL (8.4-10.2); Carbon Dioxide 32 mmol/L (22-29); Chloride 100 mmol/L (96-108); Cholesterol 214 mg/dL (<200); Estimated Glomerular Filt Rate > 60; HDL Cholesterol 47 mg/dL (>40); Potassium 3.6 mmol/L (3.3-5.1); Sodium 139 mmol/L (135-145); Total Protein 7.4 g/dL (6.5-8.0); Triglycerides 124 mg/dL (<150)
== END 2024-11-28 11:52 | disposition home or self-care (01) ==
LOC: HO.MANLDS 11:51
PROVIDERS: Visit Provider Internal Medicine
DX: E78.00 Pure hypercholesterolemia, unspecified (principal); I10 Essential (primary) hypertension; R73.01 Impaired fasting glucose
CPT/HCPCS: 36415; 80053; 80061; 83036; 85025